=== PATIENT | male | born 1960 | race Caucasian/White ===

== ENCOUNTER 2020-02-24 19:17 | Emergency (ER) | payer SELFPAY ==
[~2020-02-24] VITALS: Ht 175.3 cm; Wt 104.3 kg
[2020-02-24 19:25] VITALS: BP_SYST 158
[2020-02-24 19:30] VITALS: BP_SYST 158
== END 2020-02-24 19:30 ==
LOC: SED 19:17
DX: R05 Cough (principal); I10 Essential (primary) hypertension; F17.200 Nicotine dependence, unspecified, uncomplicated; F12.90 Cannabis use, unspecified, uncomplicated
CPT/HCPCS: 99283